=== PATIENT | male | born 1990 | race Caucasian/White ===

== ENCOUNTER 2018-07-08 13:44 | Emergency (ER) | payer SELFPAY ==
[2018-07-08] MEDS: cefTRIAXone SOD 250 MG VIAL (J0696) IM (15:16)
[2018-07-08 17:35] LABS: CHLAMYDIA DNA AMPLIFICATION POSITIVE (NEGATIVE); GC DNA AMPLIFICATION NEGATIVE (NEGATIVE)
== END 2018-07-08 15:35 | disposition home or self-care (01) ==
LOC: M ED 13:44
DX: N45.1 Epididymitis (principal); F17.210 Nicotine dependence, cigarettes, uncomplicated
CPT/HCPCS: J0696